=== PATIENT | male | born 2000 | race American Indian/Alaskan Native ===

== ENCOUNTER 2024-09-18 10:52 | Emergency (ER) | payer SELFPAY ==
[2024-09-18 11:08] VITALS: BP 126/62; PULSE 96; RESP 20; TEMP 37; O2SAT 97; BMI 31.3
--- NOTE | 2024-09-18 11:14 | ED_ITS ---
HPI - General Adult General Chief complaint: Upper Respiratory Symptoms Stated complaint: Chills, sore throat, and unable to swallow Time Seen by Provider: 09/18/24 11:13 Source: patient Mode of arrival: Ambulatory History of Present Illness HPI narrative: Otherwise healthy 24-year-old gentleman no significant medical history presents with sore throat getting worse difficult to swallow for the last 48 hours. He has had low-grade fever, headache, some mild abdominal pain without vomiting. No coughing. No recent exposures. Related Data Previous Rx's ?Medication ?Instructions ?Recorded sulfamethoxazole 800 1 tab PO BID #14 tabs mg-trimethoprim 160 mg tablet (Bactrim DS) Allergies Allergy/AdvReac Type Severity Reaction Status Date / Time Penicillins Allergy Intermediate Verified 09/18/24 11:09 Review of Systems Review of Systems Narrative: Pertinent positive and negative findings as per HPI Patient History Smoking Status: Former smoker Exam Initial Vital Signs Initial Vital Signs: Vital Signs Temperature 98.6 F 09/18/24 11:08 Pulse Rate 96 H 09/18/24 11:08 Respiratory Rate 20 09/18/24 11:08 Blood Pressure 126/62 09/18/24 11:08 Pulse Oximetry 97 09/18/24 11:08 Oxygen Delivery Method Room Air 09/18/24 11:08 General: Alert appropriate in no acute distress HEENT: Significantly swollen posterior pharynx tonsils with exudate, erythematous with bilateral cervical adenopathy Respiratory: Able to speak in full sentences, no obvious respiratory distress, no wheezing no rhonchi Skin: No obvious rashes, warm and dry Neurologic: Grossly intact no obvious asymmetries or abnormalities Psych: appropriate insight and affect, cooperative Course Vital Signs Vital signs: Vital Signs - 8 hr 09/18/24 11:08 Temperature 98.6 F Pulse Rate 96 H Respiratory Rate 20 Blood Pressure 126/62 Pulse Oximetry 97 Oxygen Delivery Method Room Air Medical Decision Making [facility] Narrative Medical decision making narrative: Otherwise healthy 24-year-old young man with sore throat for 48 hours. With [facility] criteria his likelihood of strep throat is well over 50%. With shared decision-making we opted to simply treat him with antibiotics rather than proceed with the additional imaging. He is not acutely septic, does not need any additional workup at this time. There was no evidence of respiratory involvement, no signs of peritonsillar cellulitis or abscess, he is able to speak and manage secretions as well as keep liquids down. He is given 60 mg of oral prednisone for pain and swelling in the emergency department at present prescription for Septra has been given to him. He is safe for discharge Discharge Plan Departure Patient Disposition: Home Clinical Impression: Strep throat Instructions: DI for Strep Throat Activity Restrictions/Additional Instructions: Thank you for coming in today Based on your physical exam and history, your chance of having strep throat is high enough that I am going to give you antibiotics regardless of any testing. We will need decided not to do any additional testing at this time I have given you a prescription for Bactrim, this needs to be taken twice a day for 7 days. This is an antibiotic In the emergency department I gave you single dose of prednisone. This helps with the pain and swelling so that you are next couple of days are not quite as miserable Using 400 mg of ibuprofen (2 [id number] pills) and 1 Tylenol every 6 hours can be very helpful in controlling pain. If you find that you are getting worse or develop any new symptoms, please feel free to return to the emergency department for further evaluation. Prescriptions: New sulfamethoxazole-trimethoprim [Bactrim DS] 800-160 mg tablet 1 tab PO BID Qty: 14 0RF Stand Alone Forms: Patient Portal/API
== END 2024-09-18 11:36 | disposition home or self-care (01) ==
LOC: ED 11:29
PROVIDERS: Emergency Provider Emergency Medicine
DX: J02.0 Streptococcal pharyngitis (principal); Z87.891 Personal history of nicotine dependence
CPT/HCPCS: 99283